=== PATIENT | female | born 1970 | race Caucasian/White ===

== ENCOUNTER 2021-12-31 10:03 | Emergency (ER) | payer BC ==
[2021-12-31 10:36] VITALS: BP 117/73; PULSE 104
[2021-12-31] MEDS ORDERED: Lactated Ringers 1,000 ML IV SCH (11:00)
[2021-12-31] MEDS ORDERED: Ketorolac 30 MG/ML SDV IVPUSH ONE (11:01)
[2021-12-31] MEDS ORDERED: Iopamidol 612 MG/ML 100 ML Bottle IV PRN (11:35)
[2021-12-31] MEDS ORDERED: Sodium Chloride 0.9% 100 ML IV SCH (11:45)
== END 2021-12-31 13:56 | disposition home or self-care (01) ==
LOC: JP.ED 10:03
DX: K57.32 Diverticulitis of large intestine without perforation or abscess without bleeding (principal); D72.829 Elevated white blood cell count, unspecified; Z88.8 Allergy status to other drugs, medicaments and biological substances
CPT/HCPCS: 36415; 74177; 80048; 81001; 85025; 86140; 96374; 99283; 99284-25; J1885; J3490; J7120; Q9967